=== PATIENT | male | born 1995 | race Caucasian/White ===

== ENCOUNTER 2021-11-14 23:11 | Emergency (ER) | payer SELFPAY | END 2021-11-15 00:12 | disposition home or self-care (01) | LOC: MADERS 23:11 | DX: S63.501A Unspecified sprain of right wrist, initial encounter (principal); V86.95XA Unspecified occupant of 3- or 4- wheeled all-terrain vehicle (ATV) injured in nontraffic accident, initial encounter; F17.220 Nicotine dependence, chewing tobacco, uncomplicated ==